=== PATIENT | male | born 1960 | race Caucasian/White ===

== ENCOUNTER 2018-04-29 16:45 | Outpatient (REF) | payer MEDICAID, SELFPAY ==
[2018-04-29 20:10] LABS: HCT 43.3 % (40.0-50.0); HGB 14.3 g/dL (13.5-17.5); Mean Corpuscular Hemoglobin 28.8 pg (27.0-33.0); Mean Corpuscular Volume 87.3 fL (80-95); Mean Platelet Volume 12.1 fL (8.0-11.0); Platelet Count 282 x1000/uL (130-400); RBC 4.96 m/cumm (4.50-6.00); RBC Distribution Width 13.8 % (11.8-14.1); White Blood Cell Count 13.08 k/cumm (4.4-10.8)
[2018-04-29 20:15] LABS: ALT 24 U/L (12-78); AST 15 U/L (15-37); Albumin 3.7 g/dL (3.4-5.0); Alkaline Phosphatase 83 U/L (46-116); Anion Gap 9.6 mmol/L (3-11); BUN 18 mg/dL (7-18); CO2 26.4 mmol/L (21.0-32.0); CREATININE 1.03 mg/dL (0.70-1.30); Calcium 9.2 mg/dL (8.5-10.1); Chloride 104 mmol/L (98-107); Glucose 93 mg/dL (70-100); Potassium 4.8 mmol/L (3.5-5.1); Sodium 140 mmol/L (136-145)
[2018-04-29 20:54] LABS: Bilirubin, Total 0.4 mg/dL (0.2-1.0)
[2018-05-02 10:04] LABS: PSA, Diagnostic 1.5 ng/ml (0-3.5)
== END 2018-04-29 16:46 ==
LOC: LBN 16:45
PROVIDERS: PCP Physician Assistant; Visit Provider Internal Medicine
DX: C61 Malignant neoplasm of prostate (principal)
CPT/HCPCS: 80053; 85027; 84153

== ENCOUNTER 2018-08-11 15:20 | Outpatient (REF) | payer MEDICAID, SELFPAY ==
[2018-08-12 11:22] LABS: ALT 25 U/L (12-78); AST 17 U/L (15-37); Albumin 3.7 g/dL (3.4-5.0); Alkaline Phosphatase 88 U/L (46-116); Anion Gap 7.4 mmol/L (3-11); BUN 22 mg/dL (7-18); Bilirubin, Total 0.4 mg/dL (0.2-1.0); CO2 29.6 mmol/L (21.0-32.0); CREATININE 0.92 mg/dL (0.70-1.30); Calcium 9.5 mg/dL (8.5-10.1); Chloride 102 mmol/L (98-107); Glucose 100 mg/dL (70-100); Potassium 4.4 mmol/L (3.5-5.1); Sodium 139 mmol/L (136-145)
[2018-08-12 11:50] LABS: Abs Immature Grans 0.04 k/cumm (0.0-0.09); Absolute Basophil Count 0.04 k/cumm (0.0-0.2); Absolute Eosinophil Count 0.11 k/cumm (0.0-0.7); Absolute Monocyte Count 0.87 k/cumm (0.11-0.7); Basophils % 0.3; Eosinophils % 0.8; HCT 46.2 % (40.0-50.0); HGB 15.2 g/dL (13.5-17.5); Immature Grans % 0.3; Lymphocytes % 15.4; Mean Corp. HGB Concentration 32.9 g/dL (32.0-36.0); Mean Corpuscular Hemoglobin 28.8 pg (27.0-33.0); Mean Corpuscular Volume 87.5 fL (80-95); Mean Platelet Volume 12.7 fL (8.0-11.0); Monocytes % 6.4; Neutrophils % 76.8; Platelet Count 280 x1000/uL (130-400); RBC 5.28 m/cumm (4.50-6.00); RBC Distribution Width 13.7 % (11.8-14.1); White Blood Cell Count 13.53 k/cumm (4.4-10.8)
[2018-08-12 11:51] LABS: Absolute Lymphocyte Count 2.08 k/cumm (1.2-3.4); Absolute Neutrophil Count 10.39 k/cumm (1.2-6.7)
[2018-08-15 10:07] LABS: PSA, Diagnostic 1.6 ng/ml (0-3.5)
== END 2018-08-11 15:40 ==
LOC: LBN 15:20
PROVIDERS: PCP Physician Assistant; Visit Provider Internal Medicine
DX: C61 Malignant neoplasm of prostate (principal)
CPT/HCPCS: 80053; 84153; 85025

== ENCOUNTER 2019-04-20 00:46 | Outpatient (CLI) | payer MEDICAID, SELFPAY ==
--- NOTE | 2019-04-20 14:32 | DI.CT_ITS ---
SYMPTOMS/DIAGNOSIS: PULMONARY NODULE NONCONTRAST CHEST CT: Comparison is made with July, from [facility]. There is no change in a 3 mm nodule in the right middle lobe just beneath the minor fissure. Bilateral calcified pleural plaques are again noted. There are a few tiny calcified pulmonary nodules. No adenopathy, pleural or pericardial effusions are seen. There has been no change in size of sclerotic bony lesions in the right 2nd and 5th ribs. The adrenals and visualized portions of the liver, spleen, kidneys and pancreas appear normal. IMPRESSION: Stable tiny right middle lobe nodule. No new nodules are identified. Stable right 2nd and 5th rib sclerotic lesions.
== END 2019-04-20 01:06 ==
PROVIDERS: PCP Physician Assistant; Visit Provider Internal Medicine
DX: R91.1 Solitary pulmonary nodule (principal)
CPT/HCPCS: 71250

== ENCOUNTER 2019-04-26 13:23 | Outpatient (REF) | payer MEDICAID, SELFPAY ==
[2019-04-26 20:31] LABS: ALT 27 U/L (12-78); AST 14 U/L (15-37); Albumin 3.4 g/dL (3.4-5.0); Alkaline Phosphatase 82 U/L (46-116); Anion Gap 8.9 mmol/L (3-11); BUN 19 mg/dL (7-18); Bilirubin, Total 0.4 mg/dL (0.2-1.0); CO2 27.1 mmol/L (21.0-32.0); CREATININE 0.97 mg/dL (0.70-1.30); Chloride 105 mmol/L (98-107); Glucose 92 mg/dL (70-100); Sodium 141 mmol/L (136-145); Total Protein 6.5 g/dL (6.4-8.2)
[2019-04-26 21:01] LABS: Abs Immature Grans 0.03 k/cumm (0.0-0.09); Absolute Basophil Count 0.05 k/cumm (0.0-0.2); Absolute Eosinophil Count 0.08 k/cumm (0.0-0.7); Absolute Lymphocyte Count 2.93 k/cumm (1.2-3.4); Absolute Monocyte Count 1.09 k/cumm (0.11-0.7); Absolute Neutrophil Count 6.15 k/cumm (1.2-6.7); Basophils % 0.5; Eosinophils % 0.8; HCT 42.4 % (40.0-50.0); Immature Grans % 0.3; Lymphocytes % 28.4; Mean Corpuscular Volume 87.8 fL (80-95); Mean Platelet Volume 12.1 fL (8.0-11.0); Monocytes % 10.6; Neutrophils % 59.4; Platelet Count 309 x1000/uL (130-400); RBC 4.83 m/cumm (4.50-6.00); RBC Distribution Width 13.6 % (11.8-14.1); White Blood Cell Count 10.33 k/cumm (4.4-10.8)
[2019-05-02 10:30] LABS: PSA, Diagnostic 2.4 ng/ml (0-3.5)
== END 2019-04-26 13:43 ==
LOC: LBN 13:23
PROVIDERS: PCP Physician Assistant; Visit Provider Internal Medicine
DX: C61 Malignant neoplasm of prostate (principal)
CPT/HCPCS: 80053; 84153; 83735; 85025

== ENCOUNTER 2019-05-01 18:50 | Outpatient (REF) | payer MEDICAID, SELFPAY ==
[2019-05-01 20:12] LABS: PHOSPHORUS 3.8 mg/dL (2.6-4.7)
== END 2019-05-01 19:10 ==
LOC: LBN 18:50
PROVIDERS: PCP Physician Assistant; Visit Provider Internal Medicine
DX: C61 Malignant neoplasm of prostate (principal)
CPT/HCPCS: 80053; 83735; 84100; 84153

== ENCOUNTER 2019-07-24 19:53 | Outpatient (REF) | payer MEDICAID, SELFPAY ==
[2019-07-24 19:03] LABS: ALT 28 U/L (16-63); AST 15 U/L (15-37); Albumin 3.8 g/dL (3.4-5.0); Alkaline Phosphatase 64 U/L (46-116); Anion Gap 7.6 mmol/L (3-11); BUN 19 mg/dL (7-18); Bilirubin, Total 0.4 mg/dL (0.2-1.0); CO2 28.4 mmol/L (21.0-32.0); CREATININE 0.97 mg/dL (0.70-1.30); Calcium 8.9 mg/dL (8.5-10.1); Chloride 104 mmol/L (98-107); Glucose 118 mg/dL (70-100); Magnesium 2.1 mg/dL (1.8-2.4); PHOSPHORUS 3.7 mg/dL (2.6-4.7); Potassium 4.4 mmol/L (3.5-5.1); Sodium 140 mmol/L (136-145)
[2019-07-26 10:24] LABS: PSA, Diagnostic 3.5 ng/ml (0-3.5)
== END 2019-07-24 20:13 ==
LOC: LBN 19:53
PROVIDERS: PCP Physician Assistant; Visit Provider Internal Medicine
DX: C61 Malignant neoplasm of prostate (principal); C79.51 Secondary malignant neoplasm of bone
CPT/HCPCS: 80053; 83735; 84100; 84153

== ENCOUNTER 2019-10-12 15:25 | Outpatient (REF) | payer MEDICAID, SELFPAY ==
[2019-10-13 10:12] LABS: Albumin 3.8 g/dL (3.4-5.0); BUN 20 mg/dL (7-18); CREATININE 0.97 mg/dL (0.70-1.30); Calcium 9.5 mg/dL (8.5-10.1); Glucose 82 mg/dL (74-106); PHOSPHORUS 4.3 mg/dL (2.6-4.7); Total Protein 7.1 g/dL (6.4-8.2)
[2019-10-13 10:13] LABS: ALT 24 U/L (16-63); AST 17 U/L (15-37); Alkaline Phosphatase 79 U/L (46-116); Anion Gap 7.2 mmol/L (3-11); Bilirubin, Total 0.4 mg/dL (0.2-1.0); CO2 30.8 mmol/L (21.0-32.0); Chloride 104 mmol/L (98-107); Magnesium 2.1 mg/dL (1.8-2.4); Potassium 4.1 mmol/L (3.5-5.1); Sodium 142 mmol/L (136-145)
[2019-10-16 11:22] LABS: PSA, Diagnostic 4.9 ng/mL (0.0-3.5)
== END 2019-10-12 15:45 ==
LOC: LBN 15:25
PROVIDERS: PCP Physician Assistant; Visit Provider Internal Medicine
DX: C61 Malignant neoplasm of prostate (principal); C79.51 Secondary malignant neoplasm of bone
CPT/HCPCS: 80053; 83735; 84100; 84153

== ENCOUNTER 2019-10-18 10:28 | Outpatient (CLI) | payer MEDICAID, SELFPAY ==
[2019-10-19 10:17] LABS: PSA, Diagnostic 5.8 ng/mL (0.0-3.5)
== END 2019-10-18 10:48 ==
PROVIDERS: PCP Physician Assistant; Visit Provider Internal Medicine
DX: C61 Malignant neoplasm of prostate (principal)
CPT/HCPCS: 36415; 84153

== ENCOUNTER 2021-08-29 00:26 | Outpatient (CLI) | payer MEDICAID, SELFPAY ==
--- NOTE | 2021-08-29 11:00 | DI.NM_ITS ---
Exam(s) NM BONE SCAN WHOLE BODY GRP EXAM: NM BONE SCAN WHOLE BODY GRP CLINICAL HISTORY: PROSTATE CANCER C61. TECHNIQUE: Injected Dose: 25 mCi Tc-99m MDP Delayed Images: 2-3 hours. COMPARISON: No exams were available for comparison FINDINGS: Symmetric axial uptake. Bilateral renal excretion is identified. There are areas of increased radiotr acer uptake seen in the region of the left acetabulum, the right iliac, the left iliac and the right 7th rib. These findings are suspicious for metastatic disease. There may also be faint increased ra diotracer uptake involving the right acetabulum. There is increased uptake in the left aspect of the mid cervical spine. This may be degenerative although metastatic disease cannot be excluded. Mild increased activity is seen in the shoulders bilaterally suggestive of degenerative changes. IMPRESSION: 1. Findings suggestive of metastatic disease involving the pelvis and right rib. CT scan or MRI may be obtained for further evaluation. DATA REPOSITORY:
== END 2021-08-29 00:46 ==
PROVIDERS: PCP Physician Assistant; Visit Provider Internal Medicine
DX: C61 Malignant neoplasm of prostate (principal); R93.89 Abnormal findings on diagnostic imaging of other specified body structures
CPT/HCPCS: 78306

== ENCOUNTER 2022-01-02 00:36 | Outpatient (CLI) | payer MEDICAID, SELFPAY ==
--- NOTE | 2022-01-02 11:00 | DI.NM_ITS ---
Exam(s) NM BONE SCAN WHOLE BODY GRP EXAM: [place] BONE SCAN WHOLE BODY GRP CLINICAL HISTORY: PROSTATE CA. TECHNIQUE: Whole body bone scan was performed with IV injection of 25 microcuries technetium 99 MDP. Compared to prior nuclear bone scan of 08/29/2021 COMPARISON: CT CT CHEST WO from 04/20/2019 [place] NM BONE SCAN WHOLE BODY GRP from 08/29/2021 FINDINGS: Again noted is increased focal uptake seen in the anterolateral aspect of the right 4th rib posterior ly there is also some increased focal uptake again noted in the in 7th rib and there is also some foc al increased uptake now seen in the medial aspect of the posterior right 6th rib, not previously evid ent. There is no new abnormal uptake seen in the opposite-left rib cage. No new abnormal uptake see n in the thoracic and lumbar spines. Focus of increased uptake in the left side of the cervical spin e is unchanged and probably facet arthropathy. Increasing focal uptake seen in the proximal right humerus at the level of the humeral neck which is suspicious. There also a few small foci of uptake seen in the lower half of the sternum, not previously present a nd therefore suspicious. At the level the pelvis previously described uptake in the left acetabular region is again noted as w ell is lesser amount of uptake seen in the anterior right acetabulum. Increased focal uptake seen in the left iliac bone. No abnormal uptake seen in the femoral and neck and inter-subtrochanteric lorenzo ons of either side nor in the remainder of the femurs and lower limbs. Excretion from both kidneys is again noted. No obvious obstruction. IMPRESSION: 1. Findings are consistent with mildly increasing osseous metastatic disease. DATA REPOSITORY:
== END 2022-01-02 00:56 ==
PROVIDERS: PCP Physician Assistant; Visit Provider Internal Medicine
DX: C61 Malignant neoplasm of prostate (principal); C79.51 Secondary malignant neoplasm of bone
CPT/HCPCS: 78306

== ENCOUNTER 2024-06-12 15:16 | Outpatient (REF) | payer MEDICAID, SELFPAY ==
[2024-06-12 19:41] LABS: Abs Immature Grans 0.45 10^3/uL (0.0-0.06); HGB 7.3 g/dL (13.5-17.5); MCH 29.4 pg (27.0-33.0); MCHC 30.4 % (32.0-36.0); MCV 97 fL (80-95); MPV 10.5 fL (8.0-11.0); RBC 2.48 10^6/uL (4.36-5.78); RDW 17.4 % (11.8-14.1); RDW-SD 61.9 fL; WBC 5.14 10^3/uL (4.4-10.8)
[2024-06-12 20:29] LABS: Absolute Basophil Count 0.05 10^3/uL (0.0-0.2); Absolute Eosinophil Count 0.21 10^3/uL (0.0-0.7); Absolute Lymphocyte Count 0.93 10^3/uL (1.2-3.4); Absolute Monocyte Count 0.31 10^3/uL (0.1-0.8); Absolute Neutrophil Count 3.39 10^3/uL (1.2-6.7); Atypical Lymphocytes % 1 %; Bands % 4 %; Metamyelocytes % 2; Myelocytes % 3; Platelet Count 100 10^3/uL (130-400)
[2024-06-12 20:30] LABS: Diff Comment Manual Differential; Hypochromasia 1+; Polychromasia Present
[2024-06-12 22:05] LABS: ALT 18 U/L (16-63); AST 25 U/L (15-37); Albumin 2.2 g/dL (3.4-5.0); Alkaline Phosphatase 242 U/L (46-116); Anion Gap 8.7 mmol/L (3-11); BUN 8 mg/dL (7-18); Bilirubin, Total 0.22 mg/dL (0.2-1.0); CO2 23.3 mmol/L (21.0-32.0); CREATININE 0.6 mg/dL (0.70-1.30); Calcium 8.7 mg/dL (8.5-10.1); Chloride 103 mmol/L (98-107); Estimated GFR 108.47 (mL/min/1.73m2); Glucose 83 mg/dL (74-106); Potassium 4.6 mmol/L (3.5-5.1); Sodium 135 mmol/L (136-145); Total Protein 6.9 g/dL (6.4-8.2)
== END 2024-06-12 15:17 | disposition home or self-care (01) ==
LOC: NCHCN 15:16
PROVIDERS: PCP Physician Assistant; Visit Provider Physician Assistant
DX: C61 Malignant neoplasm of prostate (principal)
CPT/HCPCS: 80053; 85025

== ENCOUNTER 2024-06-15 21:32 | Outpatient (REF) | payer MEDICAID, SELFPAY ==
[2024-06-16 19:42] LABS: PSA, Diagnostic 334.7 ng/mL (<=4.5)
== END 2024-06-15 21:33 | disposition home or self-care (01) ==
LOC: LBN 21:32
PROVIDERS: PCP Physician Assistant; Visit Provider Internal Medicine
DX: C61 Malignant neoplasm of prostate (principal)
CPT/HCPCS: 84153

== ENCOUNTER 2024-07-13 09:09 | Outpatient (REF) | payer MEDICAID, SELFPAY ==
[2024-07-13 19:59] LABS: Abs Immature Grans 0.64 10^3/uL (0.0-0.06); HCT 25.2 % (40.0-50.0); MCH 29.5 pg (27.0-33.0); MCHC 31.7 % (32.0-36.0); MCV 93 fL (80-95); MPV 10.8 fL (8.0-11.0); RBC 2.71 10^6/uL (4.36-5.78); RDW 16.4 % (11.8-14.1); RDW-SD 54.2 fL; WBC 6.14 10^3/uL (4.4-10.8)
[2024-07-13 20:12] LABS: Absolute Lymphocyte Count 0.55 10^3/uL (1.2-3.4); Absolute Monocyte Count 0.25 10^3/uL (0.1-0.8); Absolute Neutrophil Count 4.91 10^3/uL (1.2-6.7); Bands % 2 %
[2024-07-13 20:13] LABS: Absolute Eosinophil Count 0.06 10^3/uL (0.0-0.7); Diff Comment Manual Differential; Hypochromasia 1+; Metamyelocytes % 3; Myelocytes % 3
[2024-07-13 20:14] LABS: Platelet Count 51 10^3/uL (130-400)
[2024-07-13 20:34] LABS: ALT 21 U/L (16-63); AST 20 U/L (15-37); Albumin 2.5 g/dL (3.4-5.0); Alkaline Phosphatase 289 U/L (46-116); Anion Gap 11.8 mmol/L (3-11); BUN 18 mg/dL (7-18); Bilirubin, Total 0.34 mg/dL (0.2-1.0); CO2 23.2 mmol/L (21.0-32.0); CREATININE 0.6 mg/dL (0.70-1.30); Chloride 104 mmol/L (98-107); Estimated GFR 108.47 (mL/min/1.73m2); Glucose 95 mg/dL (74-106); Potassium 4.2 mmol/L (3.5-5.1); Sodium 139 mmol/L (136-145); Total Protein 7.1 g/dL (6.4-8.2)
[2024-07-13 20:58] LABS: Calcium 8.4 mg/dL (8.5-10.1)
[2024-07-14 18:33] LABS: PSA, Diagnostic 272.5 ng/mL (<=4.5)
== END 2024-07-13 09:10 | disposition home or self-care (01) ==
LOC: LBN 09:09
PROVIDERS: PCP Physician Assistant; Visit Provider Internal Medicine
DX: C61 Malignant neoplasm of prostate (principal)
CPT/HCPCS: 80053; 84153; 85025

== ENCOUNTER 2024-08-14 01:00 | Outpatient (CLI) | payer MEDICAID, SELFPAY ==
--- NOTE | 2024-08-14 | DI.MRI_ITS ---
Exam(s) MR BRAIN WO/W EXAM: MR BRAIN WO/W CLINICAL HISTORY: PROSTATE CA,RAPID PROGRESSION RT SPHENOID METS,C61. TECHNIQUE: Multiplanar multisequence MRI of the brain was performed. CONTRAST MATERIAL: IV Contrast: 13 ML of Dotarem contrast administered. COMPARISON: MR MR HEAD W WO CONTRAST from 05/17/[address] SIM EXAM from 05/22/2024 FINDINGS: VENTRICLES AND EXTRA AXIAL SPACES: Normal in size and morphology for the patient's age. HEMORRHAGE: None. CEREBRAL PARENCHYMA: No focus of restricted diffusion to suggest acute infarct. Marked interval increase in size of right sphenoid wing mass common with significant inferior extens ion into the superior right orbit causing marked right proptosis. Infero medial deviation of the rig ht optic nerve. The mass extends to involve the adjacent portion of the inferior right frontal lobe. This shows surrounding white matter edema. The mass measures approximately 3 cm transverse by 5 cm AP by 4 cm cephalo caudad. The mass also extends inferiorly to the sphenoid wings and antral medial aspect of the right temporal lobe. Interval increase in size of right parietal skull mass, barely perceptible on the previous exam it no w measures 2.5 x 1.5 x 3 cm. There is some impression on the adjacent brain but no significant mass edema. Interval increase in size of posterior medial parietal mass, now measuring roughly 2.2 x 1.7 by 1.4 c m. Interval increase in size of previously noted mass in the posterior medial parietal mass 32.2 x 1 .7 by 2.2 cm. Mild mass effect on adjacent brain. Previously noted left frontal parietal skull mass with solid and cystic components appears to have mi ldly decreased in size, particularly the solid components. Improvement in [id number] midline shif t. There has been a decrease in the extent of the mass extending into the left superior orbit. Multiple other smaller skull lesions are noted, greater near the vertex. BRAINSTEM/CEREBELLUM: Normal. VISUALIZED PARANASAL SINUSES/MASTOIDS: Right frontal sinus shows fluid. Opacification of some ethmoi d sinuses. Mucous retention in the maxillary sinuses. Mastoid air cells are clear. Pituitary: Not enlarged. Vasculature: Patent. IMPRESSION: Significant interval deterioration with multiple increased size of skull metastasis, particularly the right sphenoid wing which now extends significantly into the right orbit creating proptosis as well as extending into the right frontal lobe. Previously noted left frontal parietal lesion has decreased in size with less extension into the left orbit as well as improvement in [id number] midline shift. DATA REPOSITORY:
[2024-08-14] MEDS: Normal Saline Flush 10 ML SYR IVP (11:08)
[2024-08-14] MEDS: Gadoterate meglumine 20 ML SYRINGE 13 ML IVP (11:09)
--- NOTE | 2024-08-14 12:44 | DI.VRAD_ITS ---
PROCEDURE INFORMATION: Exam: MR Head Without and With Contrast Exam date and time: 08/14/2024 11:03 AM Age: 64 years old Clinical indication: Condition or disease; Other: Prostate cancer TECHNIQUE: Imaging protocol: Magnetic resonance imaging of the head without and with contrast. Contrast material: DOTAREM; Contrast volume: 13 ml; Contrast route: INTRAVENOUS (IV); COMPARISON: MR HEAD W WO CONTRAST 05/17/2024 11:30 AM FINDINGS: Brain: New 3 cm lesion in the left frontal lobe with surrounding vasogenic edema. Interval increase in size of dural-based right parietal bone lesion now measuring 25 mm, with associated surrounding edema and mass effect. Interval increase in size of left occipital lesion, now measuring 3 cm. The lesion involving the right medial temporal lobe, right sphenoid wing and superior right orbit has also increased in size, with mass effect on the right orbital structures and right proptosis noted. Left frontotemporal dural-based lesion appears stable or minimally decreased in size from prior exam. No evidence of acute intracranial hemorrhage or acute large vessel infarct. Cerebral ventricles: Normal. No ventriculomegaly. Bones: See Brain finding. Paranasal sinuses: Normal as visualized. No acute sinusitis. Mastoid air cells: Normal as visualized. No mastoid effusion. Orbital cavities: See Brain finding. Soft tissues: Unremarkable. IMPRESSION: Several new/enlarging lesions consistent with progression of metastatic disease. There is new right proptosis with significant enlargement of lesion in the right sphenoid wing and mass effect on the right orbital structures. Dictated and Authenticated by: Maddy Garcias MD. Ordering:LYNN Stephen MD
== END 2024-08-14 01:20 ==
PROVIDERS: PCP Physician Assistant; Visit Provider Radiology Radiation Oncology
DX: C61 Malignant neoplasm of prostate (principal); R90.89 Other abnormal findings on diagnostic imaging of central nervous system
CPT/HCPCS: 70553